=== PATIENT | male | born 1960 | race American Indian/Alaskan Native ===

== ENCOUNTER 2018-11-24 12:58 | Inpatient (IN) | payer BC | END 2018-11-27 21:00 | disposition home or self-care (01) | LOC: ED 12:58 → ERH 17:07 → 5RNO 23:34 ==

== ENCOUNTER 2019-01-28 09:37 | Outpatient (CLI) | payer BC | END 2019-01-28 09:38 | disposition home or self-care (01) | LOC: LAB 09:37 ==